=== PATIENT | female | born 1935 | race Two or more races ===

== ENCOUNTER 2017-07-16 18:14 | Emergency (ER) | payer MEDICARE, OTHER ==
[~2017-07-16] VITALS: Ht 162.6 cm; Wt 54.4 kg
[2017-07-16] MEDS ORDERED: EPINEPHrine HCL 1 MG/10 ML SYRG IV ONE (18:23)
[2017-07-16] MEDS ORDERED: CALCIUM CHLOR(10%) 100MG/ML 10ML SYRINGE IV ONE (18:23)
[2017-07-16] MEDS ORDERED: SODIUM BICARBONATE 8.4% INJ 50ML SYRINGE IV ONE (18:23)
[2017-07-16] MEDS ORDERED: SODIUM BICARBONATE 8.4% INJ 50ML SYRINGE ONE (18:24)
[2017-07-16] MEDS ORDERED: HEPARIN SODIUM (PORCINE) 5000 UNITS/ML 1ML VIAL ONE (18:29)
[2017-07-16] MEDS ORDERED: LIDOCAINE 2%HCL (LOCAL ANESTH.) INJ 20ML MDV ONE (18:30)
[2017-07-16] MEDS ORDERED: IOHEXOL 350 MG/ML 100ML IJ ONE (18:30)
[2017-07-16] MEDS ORDERED: EPINEPHrine HCL 1 MG/10 ML SYRG ONE (18:38)
[2017-07-16 19:44] VITALS: BP 91/59
== END 2017-07-16 19:35 | disposition home or self-care (01) ==
LOC: EDUNIT# 18:14 → ER 18:22
DX: I46.9 Cardiac arrest, cause unspecified (principal); I10 Essential (primary) hypertension; Z88.0 Allergy status to penicillin
CPT/HCPCS: 92950; 99285; J0171; J1644; Q9967; 93005; 94002